=== PATIENT | male | born 1960 | race Caucasian/White ===

== ENCOUNTER 2025-08-31 15:40 | Inpatient (IN) | payer MEDICAID, SELFPAY ==
[2025-08-31] VITALS (28 sets, daily range): BP systolic 133–163; BP diastolic 78–100; PULSE 60–103; RESP 11–22; TEMP 36.4–37.7; O2SAT 92–100; BMI 27.9; BMI 27.8
--- NOTE | 2025-08-31 10:55 | SUR.PHASEI ---
1055 patient arrived to recovery, report received from Kacey PARKER
--- NOTE | 2025-08-31 11:12 | XR_ITS ---
Examination: CT abdomen, without intravenous contrast. CT pelvis, without intravenous contrast. CT abdomen, with intravenous contrast. CT pelvis, with intravenous contrast. 2-D sagittal coronal reconstructions. Date and time of exam: August 31, 2025, 1444 hours INDICATIONS: Difficulty urinating 2 years CTDI: vol (mGy) 16.5 DLP: (mGycm) 1019 Technique: Multiple 3.0 axial images of the abdomen and pelvis without intravenous contrast, 3.0 mm slice thickness. Multiple 3.0 postcontrast images abdomen and pelvis also obtained, post intravenous injection 60 cc [id number] 2-D sagittal and coronal reconstructions. Low dose protocols were performed. One or more of the following dose reduction techniques were used; automated exposure control, adjustment of the mA and/or KV according to patient size, use of iterative reconstruction technique. Findings: No focal liver or splenic lesions No gallstones No pancreatic mass. No renal or ureteral calculi. Fluid distended colon Normal appendix Marked inflammatory change around the sigmoid colon Urinary bladder intact Fat-containing inguinal hernia Advanced degenerative disc disease L4-L5, L5-S1 IMPRESSION: Marked inflammatory change around the entire sigmoid colon, differential would include nonspecific colitis, less likely acute diverticulitis, clinical correlation advised
[2025-08-31] MEDS: RINGERS LACTATED 1000 ML 1,000 ML 60 ML IV (11:16)
[2025-08-31 12:11] LABS: Basophils # (Auto) 0.0 Thou/mm3 (0.0-0.2); Basophils % (Auto) 0 % (0-2.5); Eosinophils # (Auto) 0.3 Thou/mm3 (0.0-0.5); Eosinophils % (Auto) 4 % (0-10); Hematocrit 36.4 % (41.0-53.0); Hemoglobin 11.4 g/dL (13.5-16.0); Immature Granulocytes Auto 0.02 Thou/mm3 (0.00-0.00); Lymphocytes # (Auto) 1.0 Thou/mm3 (1.0-4.8); Lymphocytes % (Auto) 11 % (10-50); Mean Corpuscular HGB Conc 31.3 g/dl (31.0-37.0); Mean Corpuscular Hemoglobin 24.6 pg (25.0-35.0); Mean Corpuscular Volume 78 fL (80-100); Monocytes # (Auto) 0.9 Thou/mm3 (0.0-0.8); Monocytes % (Auto) 10 % (0-12); Neutrophils # (Auto) 7.1 Thou/mm3 (1.8-7.7); Neutrophils % (Auto) 76 % (37-80); Nucleated Red Blood Cell # 0.00 Thou/mm3 (0.00-0.00); Nucleated Red Blood Cell % 0 /100 WBC (0); Platelet Count 345 Thou/mm3 (140-440); RDW Standard Deviation 40.8 fL (35.1-43.9); Red Blood Count 4.64 Miln/mm3 (4.50-5.90); White Blood Count 9.3 Thou/mm3 (3.8-10.6)
--- NOTE | 2025-08-31 12:30 | SUR.PHASEI ---
Dr. Calle at bedside, this report writer notified MD patient is bleeding from the rectal, currently oozing from rectum, MD stated this is to be expected, will monitor
[2025-08-31 12:34] LABS: Glucose Estimated Average 123 mg/dL (80-131); Hemoglobin A1C 5.9 % Hgb (4.8-6.0)
[2025-08-31 12:39] LABS: Alanine Aminotransferase 13 U/L (10-49); Albumin, Serum 3.9 gm/dL (3.4-4.8); Albumin/Globulin Ratio 1.9 (1.2-2.2); Alkaline Phosphatase 108 U/L (46-116); Anion Gap 8 (7-16); Aspartate Amino Transferase 17 U/L (0-34); BUN/Creatinine Ratio 13 Ratio (12-20); Bilirubin,Total 1.2 mg/dL (0.3-1.2); Blood Urea Nitrogen 10 mg/dL (9-23); Calcium 9.1 mg/dL (8.3-10.6); Calcium (Corrected) 9.2 mg/dL (8.5-10.1); Carbon Dioxide 29.0 mMol/L (20.0-31.0); Chloride 103 mMol/L (98-107); Creatinine (Component) 0.8 mg/dL (0.6-1.3); Estimated Creatinine Clearance 101.2 mL/min (>60); Globulin 2.1 gm/dL (2.3-3.5); Glucose 98 mg/dL (74-106); Osmolality,Calculated 278 (275-295); Potassium 4.1 mMol/L (3.4-5.1); Sodium 140 mMol/L (136-145); Total Protein 6.0 gm/dL (5.7-8.2); eGFR > 60 See Note
--- NOTE | 2025-08-31 12:39 | SUR.PHASEI ---
pt resting in gurney with eyes closed, pt responds to voice and answers questions appropriately, breathing unlabored, absorbent pad in place with small amount of dark red drainage-Dr Calle aware, VS stable, report from Nora Lane RN
--- NOTE | 2025-08-31 14:54 | SUR.PHASEI ---
1436 patient transported via gurney to CT 1454 patient returned to recovery from CT, tolerated well
--- NOTE | 2025-08-31 15:33 | SUR.PHASEI ---
1533 Patient transported via gurney to room 357 without incident, patient ambulated to restroom with stand-by assist, having loose stools, patient cleaned self with baby wipes and new underwear with pad placed on patient, Julissa PARKER arrived to patients room, noted scant about of blood to baby wipe that patient used to clean himself, patient then ambulated to bed, call light within reach and patient resting comfortably in bed when this underwriter mortgage loan left patient room, INDUSTRIAL G[employer] SERVICER HELPER arrived to room to obtain patients vital signs prior to this underwriter mortgage loan leaving patients room.
[2025-08-31] MEDS: RINGERS LACTATED 1000 ML 1,000 ML 125 ML IV ×2 (15:57→23:42)
--- NOTE | 2025-08-31 18:26 | PC.NURSE ---
Patient stated I have not talk to Doctor about planned procedure. Patient unclear of whats going on regarding current condition. Hold off on NGT insertion for now until patient speaks with doctor. --SERA
--- NOTE | 2025-08-31 19:47 | PD.SURHP ---
HPI Date of Admission 08/31/25 15:40 Chief Complaint Chief Complaint: Rectal cancer obstructing HPI This 64-year-old white male was brought to the hospital for screening colonoscopy and also evaluation of the rectal bleeding. He was found to have a completely obstructing rectal cancer was with a very small channel measuring about 5 mm the bowel prep did not work on him and he was evaluated endoscopically today and some biopsies were taken. He is being admitted to the hospital he is going to need to have diverting colostomy and he will require neoadjuvant chemoradiation therapy prior to other management can be instituted. He will definitely need permanent colostomy at this time. The biopsies were taken and we will confirm the diagnosis of the cancer. He will be evaluated for his general medical condition and he will be scheduled for colostomy that may be done laparoscopically loop colostomy. He will definitely require neoadjuvant chemotherapy and radiation therapy prior to considering any surgical resection. Oncology and radiation oncology consultations have been requested. Past Medical History Past Medical History NEUROLOGIC: Negative Neurological Disorders or Seizures CARDIAC: Positive Hypertension; Negative Cardiac Disorders, Congestive Heart Failure, Edema, Cellulitis or Varicose Veins RESPIRATORY: Positive Respiratory Disorders and Asthma; Negative Chronic Obstructive Pulmonary Disease (COPD), Pneumonia, Tuberculosis or Sleep Apnea GASTROINTESTINAL: Positive Gastrointestinal Disorders (Rectal bleeding); Negative Hepatitis GENITOURINARY: Positive Genitourinary Disorders, Kidney Stones and Inguinal Hernia (left repaired); Negative Renal Disease MUSCULOSKELETAL: Positive Musculoskeletal Disorders and Fractures ENDOCRINE: Negative Endocrine Disorders, Diabetes Mellitus Type 1 or Diabetes Mellitus Type 2 HEMATOLOGIC: Negative Blood Disorders or Sickle Cell Disease OTHER HISTORY: Negative Hospitalization, Shingles, Falls, Blood Transfusions, Blood Transfusion Reaction, Anesthesia Reactions, Chemotherapy, Radiation Therapy, MRSA, Chicken Pox, Measles, Mumps or Cancer Surgical History SURGICAL: Positive Tonsillectomy, Abdominal Surgery and Open Reduction Internal Fixation; Negative Pacemaker Social History SMOKING STATUS: Former smoker SUBSTANCE USE: other ( crank ) Travel History EBOLA RISK: No Meds Home Medications and Allergies Home Medications ?Medication ?Instructions ?Recorded ?Confirmed ?Type atorvastatin 40 mg tablet 40 mg PO HS 08/31/25 08/31/25 History lisinopril 40 mg tablet 40 mg PO QDAY 08/31/25 08/31/25 History Allergies Allergy/AdvReac Type Severity Reaction Status Date / Time No Known Allergies Allergy Verified 08/31/25 13:03 Exam Vital Signs Temp Pulse Resp BP Pulse Ox O2 Del Method O2 Flow Rate 99.5 F 88 16 142/82 H 95 Room Air 3 08/31/25 17:33 08/31/25 17:33 08/31/25 17:33 08/31/25 17:33 08/31/25 17:33 08/31/25 17:33 08/31/25 10:45 Constitutional Constitutional: no acute distress Routine HEENT Exam Head: Present normocephalic Eye: Present EOMI and PERRL ENT: Present mucous membranes moist Routine Neck Exam Neck: Present supple and trachea midline Routine Chest/Breast/Axilla Exam Chest wall: Absent tenderness or mass Routine Respiratory Exam Respiratory: Present chest non-tender, lungs clear, normal breath sounds and no resp distress; Absent respiratory distress Routine Cardiovascular Exam Cardiovascular: Present RRR Routine Abdominal Exam Abdominal: Present soft and normoactive bowel sounds Routine Rectal Exam Comments: Obstructing rectal cancer is present and due to previous examination he is having some rectal bleeding which is stopping now. Routine Extremities Exam Extremities: Present full ROM Routine Skin Exam Skin: Present intact, dry and warm Routine Neurological Exam Neurological: Present alert, oriented X3 and CN II-XII intact Routine Psychiatric Exam Psychiatric: Present normal affect and normal thought process Results Results: Imaging CT scan - abdomen: image reviewed Assessment & Plan Problem List (1) Carcinoma of rectum: Status: Acute (2) Complete obstruction of colon: Status: Acute (3) Hypertension: Qualifiers: Hypertension type: primary hypertension Qualified Code(s): I10 - Essential (primary) hypertension Status: Acute Plan Admitted to the hospital replacement IV fluid Nutritional assessment and scheduled for loop colostomy. Quality Measures Quality Measures none
--- NOTE | 2025-08-31 19:56 | ESCONSULT_ITS ---
<Statement entered by Hiren Beth MD - 09/01/25 07:29> I have discussed and was present for the essential components of the history, physical examination, diagnosis, and treatment plan with the resident. I agree with the patient's care as documented by the resident and amended herein by me. Hiren Beth MD FACP. HPI Data of Consult Requesting Physician: Carl Calle MD Admitting Provider: Carl Calle MD Attending Provider: Carl Calle MD Primary Care Provider: Salbador Bar MD Consult Narrative History of present illness: 64-year-old male with a history of hypertension and hyperlipidemia, now newly found rectal tumor following a colonoscopy by Dr. Calle on 08/30/2025. The patient reports ongoing symptoms of diarrhea and rectal bleeding. He notes difficulty with oral intake due to missing teeth but no significant weight loss identified. Denies shortness of breath, chest pain, nausea, or vomiting. He has no family history of cancer. The patient is an active smoker, smoking a few cigarettes daily with a [id number] history. He reports no significant alcohol use or drug history. Initial vitals on admission include temperature 97.5, BP 141/83, HR 74, RR 20, O2 sat 99% on room air. CBC showed hemoglobin 11.4. CMP showed creatinine 0.8, hemoglobin A1c 5.9, LFTs within normal range, electrolytes within normal range. CT abdomen showed marked inflammatory change around the entire sigmoid colon. Colonoscopy revealed a completely obstructing rectal tumor with a very small remaining lumen (~5mm). The hospitalist team has been consulted regarding the patient's general management while the patient gets colostomy placement on 09/[address] Calle. Thank you very much for involving us in the care of this patient. cc:: cc: Carl Calle MD Review of Systems Review of Systems Narrative Review of Systems: All systems reviewed negative unless stated otherwise above. Exam Vital Signs Temp Pulse Resp BP Pulse Ox O2 Del Method O2 Flow Rate 99.5 F 88 16 142/82 H 95 Room Air 3 08/31/25 17:33 08/31/25 17:33 08/31/25 17:33 08/31/25 17:33 08/31/25 17:33 08/31/25 17:33 08/31/25 10:45 Narrative Exam General: AOx3, no acute distress, able to speak full sentences, [place] speaking HEENT: NC/AT, mucous membranes moist, bilateral sclera anicteric Cardiovascular: regular rate and rhythm, S1/S2 present, no murmurs appreciated Pulmonary: clear to auscultation bilaterally, no rales/rhonchi/wheezes Abdominal: soft, non-tender, non-distended, no rebound/guarding, normal bowel sounds present Musculoskeletal: normal ROM, no peripheral edema Skin: warm and dry, intact, no rashes, Neuro: CN II-XII intact, no focal deficits Results Labs 08/31/25 11:58 08/31/25 11:58 Labs: Short CBC 08/31/25 Range/Units 11:58 WBC 9.3 (3.8-10.6) Thou/mm3 Hgb 11.4 L (13.5-16.0) g/dL Hct 36.4 L (41.0-53.0) % Plt Count 345 (140-440) Thou/mm3 BMP 08/31/25 11:58 Sodium 140 Potassium 4.1 Chloride 103 Carbon Dioxide 29.0 BUN 10 Creatinine 0.8 Glucose 98 Calcium 9.1 Liver Function 08/31/25 Range/Units 11:58 Total Bilirubin 1.2 (0.3-1.2) mg/dL AST 17 (0-34) U/L ALT 13 (10-49) U/L Alkaline Phosphatase 108 (46-116) U/L Albumin 3.9 (3.4-4.8) gm/dL Quality Measures Quality Measures none Medications Home Medications and Allergies Home Medications ?Medication ?Instructions ?Recorded ?Confirmed ?Type atorvastatin 40 mg tablet 40 mg PO HS 08/31/25 5 History lisinopril 40 mg tablet 40 mg PO QDAY 08/31/2508/31 History Allergies Allergy/AdvReac Type Severity Reaction Status Date / Time No Known Allergies Allergy Verified 08/31/25 13:03 Visit Medications Diphenhydramine HCl (Diphenhydramine Inj 50 Mg/Ml Vial) 25 mg IVP [id number] PRN PRN Reason: MODERATE SEDATION Hydromorphone HCl (Hydromorphone Inj 2 Mg/Ml Vial) 1 mg IVP Q4HR PRN PRN Reason: PAIN Stop: 09/05/25 10:58 Lactated Ringer's (Lactated Ringers) 1,000 mls @ 125 mls/hr IV .Q8H SHAHNAZ Stop: 09/30/25 10:59 Last Admin: 08/31/25 15:57 Dose: 125 mls/hr Discontinued Medications Bisacodyl (Bisacodyl 10 Mg Supp) 10 mg MD X1 PRN PRN Reason: Gas pain Stop: 08/31/25 11:04 Fentanyl Citrate (Fentanyl Cit Inj 50 Mcg/Ml Amp 2ml) 50 mcg IVP Q2M PRN PRN Reason: MODERATE SEDATION Lactated Ringer's (Lactated Ringers) 1,000 mls @ 60 mls/hr IV .[id number] SHAHNAZ Stop: 09/30/25 08:59 Midazolam HCl (Midazolam Inj 1 Mg/Ml Vial 2 Ml) 2 mg IVP Q2M PRN PRN Reason: Moderate Sedation Assessment & Plan Plan 64-year-old male with a history of hypertension and hyperlipidemia, now newly identified rectal tumor following a colonoscopy by Dr. Calle on 08/30/2025. The hospitalist team has been consulted regarding the patient's general management while the patient gets colostomy placement on 09/[address] Calle. #Rectal tumor, new The patient reports ongoing symptoms of diarrhea and rectal bleeding. CT abdomen showed marked inflammatory change around the entire sigmoid colon. Colonoscopy revealed a completely obstructing rectal tumor with a very small remaining lumen (~5mm). Plan: ? Biopsies were taken and we will confirm the diagnosis of the cancer ? Colostomy placement, Planned for 09/[address] Calle ? Dr. Butler and Dr. Mead consulted ? Neoadjuvant chemoradiation therapy prior to considering any surgical resection. #Hypertension Takes hydrochlorothiazide 25 mg daily and lisinopril 40 mg daily ?Resumed lisinopril 40 mg daily #Hyperlipidemia ? Resumed home atorvastatin 40 mg daily Health Maintenance: Diet: CLD GI prophylaxis: none DVT prophylaxis: SCDs Antibiotics: none CODE STATUS: FULL Disposition: MedSur Case discussed with my attending Dr. Beth, and senior resident, Dr. Agnes Mae MD PGY-1
[2025-08-31 20:50] LABS: Collection Type, Urine Clean Catch; Squamous Epithelial Cell,Urine 0 /hpf (0-5)
[2025-08-31] MEDS: ATORVASTATIN CALCIUM 20 MG TABLET 40 MG PO (20:55)
[2025-08-31 20:59] LABS: Amorphous Crystals,Urine Present (Absent); Bacteria,Urine 1+; Bilirubin,Urine Negative (Negative); Blood,Urine Negative (Negative); Clarity,Urine Clear (Clear/Hazy); Color,Urine Yellow (Lt Yel-Yel); Glucose, Urine Negative (Negative); Ketones,Urine Trace (Negative); Leukocyte Esterase,Urine Positive (Negative); Nitrite,Urine Positive (Negative); PH,Urine 6.0 (5.0-7.0); Protein,Urine Negative (Neg - Trace); RBC,Urine 1 /hpf (0-3); Specific Gravity,Urine 1.042 (1.001-1.035); Urobilinogen,Urine 3.0 mg/dL (0.0-1.0); WBC,Urine 14 /hpf (0-5)
[2025-08-31 21:07] LABS: Amphetamine/Methamp Scrn,U Positive (Negative); Barbiturate Screen,Urine Negative (Negative); Benzodiazepines Screen,Urine Positive (Negative); Benzoylecgonine Screen, Ur Negative (Negative); Fentanyl Screen,Urine Positive (Negative); Opiate Screen,Urine Negative (Negative); THC Screen,Urine Positive (Negative)
[2025-09-01] VITALS (7 sets, daily range): BP systolic 125–143; BP diastolic 74–98; PULSE 74–105; RESP 18; TEMP 36.7–37.7; O2SAT 93–94
--- NOTE | 2025-09-01 07:59 | PD.ONCRADCON ---
HPI Data of Consult Consult date: 09/01/25 Requesting Physician: Carl Calle MD Primary Care Provider: Salbador Bar MD Consult Narrative Reason for consult: Suspected colorectal cancer History of present illness: Patient is a 64-year-old gentleman with irregular bowel movements including diarrhea and passing bright red blood via rectum underwent colonoscopy performed by Dr. Calle 08/31/2025. Finding of obstructing mass which could not be completed due to unsatisfactory bowel prep and the narrowed lumen. Due to the obstruction patient is scheduled for loop diverting colostomy this a.m. CT scan abdomen pelvis 08/31/2025 revealed marked inflammatory changes around the entire sigmoid colon. Labs 08/31/2025 11.4 hemoglobin platelets 345 unremarkable CMP. Patient now referred for anticipated neoadjuvant chemoradiation following the palliative colostomy and the likely malignancy diagnosis. cc:: cc: Carl Calle MD Past Medical History Past Medical History Comments PMH COMMENT: Hypertension hyperlipidemia ORIF abdominal surgery history of kidney stones left inguinal herniorrhaphy Meds Home Medications and Allergies Home Medications ?Medication ?Instructions ?Recorded ?Confirmed ?Type atorvastatin 40 mg tablet 40 mg PO HS 08/31/25 08/31/25 History lisinopril 40 mg tablet 40 mg PO QDAY 08/31/25 08/31/25 History Allergies Allergy/AdvReac Type Severity Reaction Status Date / Time No Known Allergies Allergy Verified 08/31/25 13:03 Exam Vital Signs Temp Pulse Resp BP Pulse Ox O2 Del Method O2 Flow Rate 99.3 F 100 18 143/82 H 93 L Room Air 3 09/01/25 04:00 09/01/25 04:00 09/01/25 04:00 09/01/25 04:00 09/01/25 04:00 09/01/25 04:00 08/31/25 10:45 Narrative Exam Lying comfortably no acute distress Results Labs 08/31/25 11:58 08/31/25 11:58 Labs: Short CBC 08/31/25 Range/Units 11:58 WBC 9.3 (3.8-10.6) Thou/mm3 Hgb 11.4 L (13.5-16.0) g/dL Hct 36.4 L (41.0-53.0) % Plt Count 345 (140-440) Thou/mm3 BMP 08/31/25 11:58 Sodium 140 Potassium 4.1 Chloride 103 Carbon Dioxide 29.0 BUN 10 Creatinine 0.8 Glucose 98 Calcium 9.1 Liver Function 08/31/25 Range/Units 11:58 Total Bilirubin 1.2 (0.3-1.2) mg/dL AST 17 (0-34) U/L ALT 13 (10-49) U/L Alkaline Phosphatase 108 (46-116) U/L Albumin 3.9 (3.4-4.8) gm/dL Urine 08/31/25 Range/Units 20:33 Urine Color Yellow (Lt Yel-Yel) Urine Clarity Clear (Clear/Hazy) Urine pH 6.0 (5.0-7.0) Ur Specific [place] 1.042 H (1.001-1.035) Urine Protein Negative (Neg - Trace) Urine Glucose (UA) Negative (Negative) Assessment and Plan Additional Assessment & Plan Additional Plan: 1. History of lower GI bleeding, anemia noted on CBC obstructive symptoms colonoscopy revealing obstruction rectal area 2. Admitted with plans for loop colostomy. 3. Will follow patient postop, check pathology, perform staging and schedule any adjuvant therapy that will be needed. 4. Thank you very much for allowing me to evaluate this patient.
--- NOTE | 2025-09-01 08:59 | PC.SS ---
Follow up note: Possible surgery. Resident team is consulting to manage patient's blood pressure.
[2025-09-01 09:22] LABS: Basophils # (Auto) 0.0 Thou/mm3 (0.0-0.2); Basophils % (Auto) 0 % (0-2.5); Eosinophils # (Auto) 0.2 Thou/mm3 (0.0-0.5); Eosinophils % (Auto) 3 % (0-10); Hematocrit 31.6 % (41.0-53.0); Hemoglobin 10.3 g/dL (13.5-16.0); Immature Granulocytes Auto 0.04 Thou/mm3 (0.00-0.00); Lymphocytes # (Auto) 0.9 Thou/mm3 (1.0-4.8); Lymphocytes % (Auto) 10 % (10-50); Mean Corpuscular HGB Conc 32.6 g/dl (31.0-37.0); Mean Corpuscular Hemoglobin 25.0 pg (25.0-35.0); Mean Corpuscular Volume 77 fL (80-100); Monocytes # (Auto) 0.9 Thou/mm3 (0.0-0.8); Monocytes % (Auto) 11 % (0-12); Neutrophils # (Auto) 6.4 Thou/mm3 (1.8-7.7); Neutrophils % (Auto) 76 % (37-80); Nucleated Red Blood Cell # 0.00 Thou/mm3 (0.00-0.00); Nucleated Red Blood Cell % 0 /100 WBC (0); Platelet Count 308 Thou/mm3 (140-440); RDW Standard Deviation 40.2 fL (35.1-43.9); Red Blood Count 4.12 Miln/mm3 (4.50-5.90); White Blood Count 8.5 Thou/mm3 (3.8-10.6)
[2025-09-01] MEDS: RINGERS LACTATED 1000 ML 1,000 ML 125 ML IV ×2 (09:23→17:23)
[2025-09-01 09:58] LABS: Alanine Aminotransferase 10 U/L (10-49); Albumin, Serum 3.5 gm/dL (3.4-4.8); Albumin/Globulin Ratio 1.9 (1.2-2.2); Alkaline Phosphatase 95 U/L (46-116); Anion Gap 8 (7-16); Aspartate Amino Transferase 14 U/L (0-34); BUN/Creatinine Ratio 10 Ratio (12-20); Bilirubin,Total 1.7 mg/dL (0.3-1.2); Blood Urea Nitrogen 8 mg/dL (9-23); Calcium 8.2 mg/dL (8.3-10.6); Calcium (Corrected) 8.6 mg/dL (8.5-10.1); Carbon Dioxide 25.1 mMol/L (20.0-31.0); Chloride 103 mMol/L (98-107); Creatinine (Component) 0.8 mg/dL (0.6-1.3); Estimated Creatinine Clearance 101.2 mL/min (>60); Globulin 1.8 gm/dL (2.3-3.5); Glucose 142 mg/dL (74-106); Osmolality,Calculated 272 (275-295); Potassium 3.3 mMol/L (3.4-5.1); Sodium 136 mMol/L (136-145); Total Protein 5.3 gm/dL (5.7-8.2); eGFR > 60 See Note
--- NOTE | 2025-09-01 15:28 | ESPR_ITS ---
<Statement entered by Nam Rondon MD - 09/02/25 16:31> Patient was seen and examined at bedside. I agree on the assessment and plan on this note as documented by resident Krysta Peñaloza MD PGY1. 64-year-old male admitted post colonoscopy results by general surgery, internal medicine consulted for blood pressure management, will hold lisinopril prior to surgery, will continue to monitor blood pressure. Will consider hydralazine/labetalol as needed for blood pressure management. Case discussed with attending Dr. Gabe Garcia DO Nam Rondon MD PGY-2 Documentation for date of: 09/01/25 Subjective Subjective Interval history: 64 years old male with history of hypertension on Lisinopril 10mg daily presented for screening colonoscopy and evaluation of rectal bleeding, found to have complete obstructing rectal cancer with very small channel measuring 5 mm.? Biopsy taken.? Scheduled for laparoscopic loop colostomy for permanent colostomy placement on 09/[address] Calle.? Dr. Calle consulted IM for hypertension management. Exam Vital Signs Temp Pulse Resp BP Pulse Ox O2 Del Method O2 Flow Rate 98.4 F 80 18 140/75 H 94 L Room Air 3 09/01/25 12:15 09/01/25 12:15 09/01/25 12:15 09/01/25 12:15 09/01/25 12:15 09/01/25 12:15 08/31/25 10:45 Narrative Exam General: AOx3, no acute distress, able to speak full sentences, Vincent[place] speaking HEENT: NC/AT, mucous membranes moist, bilateral sclera anicteric Cardiovascular: regular rate and rhythm, S1/S2 present, no murmurs appreciated Pulmonary: clear to auscultation bilaterally, no rales/rhonchi/wheezes Abdominal: soft, non-tender, non-distended, no rebound/guarding, normal bowel sounds present Musculoskeletal: normal ROM, no peripheral edema Skin: warm and dry, intact, no rashes, Neuro: CN II-XII intact, no focal deficits Objective Labs 09/01/25 09:00 09/01/25 09:00 Labs: Laboratory Results - last 24 hr 08/31/25 08/31/25 09/01/25 20:28 20:33 09:00 WBC 8.5 RBC 4.12 L Hgb 10.3 L Hct 31.6 L MCV 77 L MCH 25.0 MCHC 32.6 RDW Std Deviation 40.2 Plt Count 308 D Neut % (Auto) 76 Lymph % (Auto) 10 [place] % (Auto) 11 Eos % (Auto) 3 Baso % (Auto) 0 Neut # (Auto) 6.4 Lymph # (Auto) 0.9 L [place] # (Auto) 0.9 H Eos # (Auto) 0.2 Baso # (Auto) 0.0 Immature Gran # (Auto) 0.04 H Absolute Nucleated RBC 0.00 Immature Gran % 1 H Nucleated RBC % 0 Sodium 136 Potassium 3.3 L D Chloride 103 Carbon Dioxide 25.1 Anion Gap 8 BUN 8 L Creatinine 0.8 Estim Creat Clear Calc 101.2 eGFR > 60 BUN/Creatinine Ratio 10 L Glucose 142 H Calculated Osmolality 272 L Calcium 8.2 L Corrected Calcium 8.6 Total Bilirubin 1.7 H D AST 14 ALT 10 Alkaline Phosphatase 95 Total Protein 5.3 L Albumin 3.5 Globulin 1.8 L Albumin/Globulin Ratio 1.9 Ur Collection Type Clean Catch Urine Color Yellow Urine Clarity Clear Urine pH 6.0 Ur Specific [place] 1.042 H Urine Protein Negative Urine Glucose (UA) Negative Urine Ketones Trace Urine Blood Negative Urine Nitrite Positive Urine Bilirubin Negative Urine Urobilinogen (Auto) 3.0 Ur Leukocyte Esterase Positive Urine RBC 1 Urine WBC 14 H Ur Squamous Epith Cells 0 Amorphous Crystals Present A Urine Bacteria 1+ A Urine Opiates Screen Negative Urine Fentanyl Screen Positive A Ur Barbiturates Screen Negative U Amphetamin/Meth Scrn Positive A U Benzodiazepines Scrn Positive A U Cocaine Metab Screen Negative U Marijuana (THC) Screen Positive A Quality Measures Quality Measures none Assessment & Plan Assessment Current Active Medications: Generic Name Dose Route Start Last Admin Trade Name Freq PRN Reason Stop Dose Admin Acetaminophen 650 mg 08/31/25 20:30 Acetaminophen 325 Mg Tablet PO 09/30/25 20:29 Q4HR PRN PAIN OR FEVER > 100.4 Atorvastatin Calcium 40 mg 08/31/25 21:00 08/31/25 20:55 Atorvastatin Calcium 20 Mg Tablet PO 09/30/25 20:59 40 mg HS SHAHNAZ Administration Diphenhydramine HCl 25 mg 08/31/25 09:04 Diphenhydramine Inj 50 Mg/Ml Vial IVP PRNMRX1 PRN MODERATE SEDATION Hydromorphone HCl 1 mg 08/31/25 20:34 Hydromorphone Inj 2 Mg/Ml Vial IVP 09/05/25 10:58 Q4HR PRN PAIN SCALE 4-10(Mod-Sev Lactated Ringer's 1,000 mls @ 125 mls/hr 08/31/25 11:00 09/01/25 09:23 Lactated Ringers IV 09/30/25 10:59 125 mls/hr .Q8H SHAHNAZ Administration Lisinopril 40 mg 09/01/25 09:00 09/01/25 09:26 Lisinopril 20 Mg Tablet PO 10/01/25 08:59 40 mg QDAY SHAHNAZ Administration Plan # Hypertension - Baseline SBP 135-140 on home lisinopril 10mg daily -? VS 143/82 highest 163/91 range SBP 130s-150s/70s-90s -? Patient is currently on lisinopril milligram daily, Tylenol 650 every 4 hrs as needed and hydromorphone 1 mg every 4 hrs as needed for pain management per primary team -? No need to adjust hypertensive medication at this time - Hold lisinopril prior to surgery tomorrow and resume after surgery - Will continue to follow #Suspected colorectal cancer - Found on last screening colonoscopy - Manage per primary team DVT prophylaxis: SCD GI prophylaxis: None Diet: CLD, NPO midnight for surgery tomorrow Lines: PIV Code status: Full code Assessment and plan discussed with my attending physician Dr. Garcia and Dr. Rondon (PGY-2). Dr. Peñaloza (PGY-1) ? founder president and ceo Attending Provider Attestation/Addendum I have discussed and was present for the essential components of the history, physical examination, diagnosis, and treatment plan with the resident. I agree with the patient's care as documented by the resident and amended herein by me. Alfredo Garcia DO. Although this document has been carefully reviewed, there may still be some phonetic and other typographical errors. These errors are purely grammatical due to imperfections in the software program and should not be construed in any way to compromise the substance of the patient's medical care during this visit.
--- NOTE | 2025-09-01 17:50 | PD.SURPROG ---
Documentation for date of: 09/01/25 Subjective Subjective Brief History: This 64-year-old white male was brought to the hospital for screening colonoscopy and also evaluation of the rectal bleeding. He was found to have a completely obstructing rectal cancer was with a very small channel measuring about 5 mm the bowel prep did not work on him and he was evaluated endoscopically today and some biopsies were taken. He is being admitted to the hospital he is going to need to have diverting colostomy and he will require neoadjuvant chemoradiation therapy prior to other management can be instituted. He will definitely need permanent colostomy at this time. The biopsies were taken and we will confirm the diagnosis of the cancer. He will be evaluated for his general medical condition and he will be scheduled for colostomy that may be done laparoscopically loop colostomy. He will definitely require neoadjuvant chemotherapy and radiation therapy prior to considering any surgical resection. Oncology and radiation oncology consultations have been requested. September 01, 2025 Progress note. 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 Patient is scheduled for examination of the rectal tumor under anaesthesia and possible debulking to open rectal passage for stool and laparoscopic loop colostomy possible open. I have discussed the colostomy and after care with the patient in different ways that the patient may understand and informed consent is obtained. He lives alone and he may need help to learn to manage the colostomy after discharge I will request social media project manager for assistance. His potenssium is 3.3 and I will replace that tonight. There are no new complaints. Patient is evaluated by hospitalist service for general medical mangement. Exam Vital Signs Temp Pulse Resp BP Pulse Ox O2 Del Method O2 Flow Rate 98.4 F 80 18 140/75 H 94 L Room Air 3 09/01/25 12:15 09/01/25 12:15 09/01/25 12:15 09/01/25 12:15 09/01/25 12:15 09/01/25 12:15 08/31/25 10:45 Narrative Exam Patients condition remains stable and unchanged. Assessment & Plan Diagnosis (1) Carcinoma of rectum: Status: Acute (2) Complete obstruction of colon: Status: Acute (3) Hypertension: Status: Acute Plan Examination under anesthesia and transanal resection of rectal tumor. Laparoscopic colostomy possible open. Informed consent was obtained. (3) Hypertension Qualifiers: Hypertension type: primary hypertension Qualified Code(s): I10 - Essential (primary) hypertension
[2025-09-01] MEDS: POTASSIUM CHL 10 mEq IVPB 10 MEQ/100 ML BAG 50 MEQ IV ×2 (17:56→19:32)
[2025-09-01] MEDS: ATORVASTATIN CALCIUM 20 MG TABLET 40 MG PO (20:01)
[2025-09-02] VITALS (13 sets, daily range): BP systolic 102–141; BP diastolic 66–90; PULSE 65–91; RESP 15–18; TEMP 36.2–37.7; O2SAT 93–97
--- NOTE | 2025-09-02 00:05 | PC.NURSE ---
Pt is NPO starting now, informed pt, verbalized understanding.
[2025-09-02] MEDS: RINGERS LACTATED 1000 ML 1,000 ML 125 ML IV ×3 (01:12→20:27)
--- NOTE | 2025-09-02 09:21 | ESPR_ITS ---
<Statement entered by Nam Rondon MD - 09/02/25 17:10> Patient was seen and examined at bedside. I agree on the assessment and plan on this note as documented by resident Krysta Peñaloza MD PGY1. That your presentation is 64-year-old male, admitted by general surgeon, scheduled for possible surgery, internal medicine team consulted for blood pressure management. Lisinopril is being held, blood pressure is well- controlled with SBP's 120-130, consider hydralazine or labetalol as needed for management of blood pressure. Will continue to monitor blood pressure and manage as needed. Case discussed with attending Dr. Nam Rondon MD PGY-2 Documentation for date of: 09/02/25 Subjective Subjective Interval history: Patient seen and examined by bedside. Patient was sleeping. Reported feeling well. No complaints. Patient does not know what time surgery is today. Potassium was 3.3 yesterday, no new labs today. Giving potassium chloride 20 mg IV while waiting for surgery. Dr. Calle confirms adenocarcinoma rectum invading perianal skin on histology. Defer to primary team for further management. Exam Vital Signs Temp Pulse Resp BP Pulse Ox O2 Del Method O2 Flow Rate 97.3 F 90 17 124/70 95 Room Air 3 09/02/25 08:00 09/02/25 08:00 09/02/25 08:00 09/02/25 08:00 09/02/25 08:00 09/02/25 08:00 08/31/25 10:45 Narrative Exam General: AOx3, no acute distress, able to speak full sentences, Malay speaking HEENT: NC/AT, mucous membranes moist, bilateral sclera anicteric Cardiovascular: regular rate and rhythm, S1/S2 present, no murmurs appreciated Pulmonary: clear to auscultation bilaterally, no rales/rhonchi/wheezes Abdominal: soft, non-tender, non-distended, no rebound/guarding, normal bowel sounds present Musculoskeletal: normal ROM, no peripheral edema Skin: warm and dry, intact, no rashes, Neuro: CN II-XII intact, no focal deficits Objective Labs 09/01/25 09:00 09/02/25 14:46 Labs: Laboratory Results - last 24 hr 09/01/25 09:00 WBC 8.5 RBC 4.12 L Hgb 10.3 L Hct 31.6 L MCV 77 L MCH 25.0 MCHC 32.6 RDW Std Deviation 40.2 Plt Count 308 D Neut % (Auto) 76 Lymph % (Auto) 10 Gage % (Auto) 11 Eos % (Auto) 3 Baso % (Auto) 0 Neut # (Auto) 6.4 Lymph # (Auto) 0.9 L Gage # (Auto) 0.9 H Eos # (Auto) 0.2 Baso # (Auto) 0.0 Immature Gran # (Auto) 0.04 H Absolute Nucleated RBC 0.00 Immature Gran % 1 H Nucleated RBC % 0 Sodium 136 Potassium 3.3 L D Chloride 103 Carbon Dioxide 25.1 Anion Gap 8 BUN 8 L Creatinine 0.8 Estim Creat Clear Calc 101.2 eGFR > 60 BUN/Creatinine Ratio 10 L Glucose 142 H Calculated Osmolality 272 L Calcium 8.2 L Corrected Calcium 8.6 Total Bilirubin 1.7 H D AST 14 ALT 10 Alkaline Phosphatase 95 Total Protein 5.3 L Albumin 3.5 Globulin 1.8 L Albumin/Globulin Ratio 1.9 Quality Measures Quality Measures VTE prophylaxis Assessment & Plan Assessment Current Active Medications: Generic Name Dose Route Start Last Admin Trade Name Freq PRN Reason Stop Dose Admin Acetaminophen 650 mg 08/31/25 20:30 Acetaminophen 325 Mg Tablet PO 09/30/25 20:29 Q4HR PRN PAIN OR FEVER > 100.4 Atorvastatin Calcium 40 mg 08/31/25 21:00 09/01/25 20:01 Atorvastatin Calcium 20 Mg Tablet PO 09/30/25 20:59 40 mg HS SHAHNAZ Administration Diphenhydramine HCl 25 mg 08/31/25 09:04 Diphenhydramine Inj 50 Mg/Ml Vial IVP PRNMRX1 PRN MODERATE SEDATION Hydromorphone HCl 1 mg 08/31/25 20:34 Hydromorphone Inj 2 Mg/Ml Vial IVP 09/05/25 10:58 Q4HR PRN PAIN SCALE 4-10(Mod-Sev Lactated Ringer's 1,000 mls @ 125 mls/hr 08/31/25 11:00 09/02/25 01:12 Lactated Ringers IV 09/30/25 10:59 125 mls/hr .Q8H SHAHNAZ Administration Potassium Chloride 10 meq in 100 mls @ 100 mls/hr 09/02/25 08:04 Kcl Ivpb IV 09/02/25 10:03 Q1H SHAHNAZ Lisinopril 40 mg 09/01/25 09:00 09/01/25 09:26 Lisinopril 20 Mg Tablet PO 10/01/25 08:59 40 mg On Hold: 09/01/25 23:55 QDAY [facility] Administration Plan # Hypertension - Baseline SBP 135-140 on home lisinopril 10mg daily and hydrochlorothiazide 25mg daily - VS 138/81 highest 163/91 range SBP 130s-150s/70s-90s - Patient is currently on lisinopril milligram daily, Tylenol 650 every 4 hrs as needed and hydromorphone 1 mg every 4 hrs as needed for pain management per primary team -?No need to adjust hypertensive medication at this time - Hold lisinopril prior to surgery tomorrow and resume after surgery - Will continue to follow #Hypokalemia - Potassium of 3.3 yesterday, no new labs today. No chest pain, shortness of breath, palpitation - Give potassium chloride 20 mg IV prior to surgery today #Colorectal cancer - Found on last screening colonoscopy - Dr. Calle reported confirmation of histologic diagnosis of adenocarcinoma rectum invading perianal skin. Patient is scheduled for examination of the rectal tumor under anaesthesia and possible debulking to open rectal passage for stool and laparoscopic loop colostomy possible open - Manage per primary team DVT prophylaxis: SCD GI prophylaxis: None Diet: NPO, surgery today Lines: PIV Code status: Full code Assessment and plan discussed with my attending physician Dr. Garcia and Dr. Rondon (PGY-2). Dr. Peñaloza (PGY-1) ? ceo and president Attending Provider Attestation/Addendum I have discussed and was present for the essential components of the history, physical examination, diagnosis, and treatment plan with the resident. I agree with the patient's care as documented by the resident and amended herein by me. Alfredo Garcia DO. Although this document has been carefully reviewed, there may still be some phonetic and other typographical errors. These errors are purely grammatical due to imperfections in the software program and should not be construed in any way to compromise the substance of the patient's medical care during this visit. Patient seen and evaluated this AM. No acute events overnight, BP well- controlled with SBP 120s to 130s. Patient scheduled for surgery today, will continue to follow, we appreciate the opportunity to participate in the care and management of this patient.
[2025-09-02] MEDS: POTASSIUM CHL 10 mEq IVPB 10 MEQ/100 ML BAG 100 MEQ IV ×2 (10:08→11:11)
--- NOTE | 2025-09-02 13:11 | PC.SS ---
Late note 09-01-25: SS met with patient regarding his d/c plan. Pt is alert/oriented. Pt was admitted for Colonoscopy. Pt confirmed demographic and contact information is correct on facesheet. Pt resides alone. Pt ambulates independently without assistance or DME. Pt is ok with all ADLs. Patient?s pharmacy of choice is [facility] on [address] Pt named his friend, Ceferino Damian phone# [phone] medical decision maker if he is unable. Patient?s choice is to return home upon d/c. Pt does not have an advance directive, SS offered, and pt declined. Pt states not diabetic and is not on dialysis. Pt states he followed up with PCP 1 month ago. Friend will provide transportation home. D/C plan: Return home Next of Kin: Ceferino Alcantaraon, friend, phone# [phone] PCP: [facility] on [facility] Address: Correct on facesheet
--- NOTE | 2025-09-02 14:54 | PC.NURSE ---
PATIENT ABLE TO TRANSFERS ON HIS OWN TO [facility], TRANSFER TO OR. PT ALERT AND ORIENTED X4.
[2025-09-02 15:21] LABS: Anion Gap 13 (7-16); BUN/Creatinine Ratio 7 Ratio (12-20); Blood Urea Nitrogen 6 mg/dL (9-23); Calcium 9.0 mg/dL (8.3-10.6); Carbon Dioxide 22.3 mMol/L (20.0-31.0); Chloride 102 mMol/L (98-107); Creatinine (Component) 0.9 mg/dL (0.6-1.3); Estimated Creatinine Clearance 90.0 mL/min (>60); Glucose 102 mg/dL (74-106); Osmolality,Calculated 271 (275-295); Potassium 3.8 mMol/L (3.4-5.1); Sodium 137 mMol/L (136-145); eGFR > 60 See Note
--- NOTE | 2025-09-02 17:58 | PD.SUROPNT ---
Date of Procedure 09/02/25 Pre Op Diagnosis Obstructing Rectal carcinoma Post Op Diagnosis Same Procedure Examination under anesthesia and partial resection of rectal tumor Laparoscopic assisted Transverse loop colostomy on 09/02/2025 Findings There is an obstructing rectal adenocarcinoma. I resected portion of that so that it is not obstructing. Procedure Description This patient was examined in the preop area and procedure was disussed with the patient and informed consent was obtained. The colostomy site was determined to be on the right upper mid abdomen . This was marked on the skin. The patient was taken to operating room and general anesthesia was administerd. Abdomen and perianal regions were prepped and drapped in usual manner. The anorectal examination is carried out first. The obstructing tumor was noted. I resected central portion of obstructing tumor. At the end the rectum diameter was 2 inches to decompress the distal colon. There was some bleeding from the manipulation. It was essentially oozing bleeding from the tumor. The rectum was packed with gauze to apply pressure. After this we changed gown and gloves and proceeded to do laparoscopy. The abdomen was already prepped and drapped. I made an infra umbilical incision for open laparoscopy and ballon canula ws inserted. Pneumoperitoneum was achieved. 30 degree scope was used. I then placed a 100 trocar in left upper quadrant antwo 5 mm trocars one in right lower quadrant and one in left paramedial location. The patient was positioned in revere trendelenburg position. I released the transveres colon to the right of middle colic artery from attachments to omentum. The hepatocolic ligaments were also divided with harmonic patti. At this point the transverse colon was mobilized enough to bring it up to the selected laparoscopic site. I then released the pneumoperitoneum and made a small 4 inch upper midline laparotomy and examined the mobilized transverse colon. I placed a carina drain around the selected site of colon. After this I removed a 2 inch skin nome t the selected colostomy site. I incised the anterior rectus sheath transverselt and rectus muscle and made a small verticle incision in the posterior rectus sheath. I then pulled the transverse colon loop with carina drain. After this I placed a bridge under the loop and sutured it to the slin I placed vaseline gauge and wet saline gaue, I decide to mature the colostomy later. The laps and instrument count were correct. The mid line incision was closed in layers. Linea alba with 0 pds continuous suture, subcutaneous layer with 3 0' chromic and skin by 4 0' nylon. The infraumbilical incision was closed with 0' vicryl for lineaalba and 3 0' chromic for subcutaneous tissue and skin by 4 0' nylon. Other trocar site incisions were closed with 4 0' nylon interrupted stitches. Sterile dressings were applied. Anesthesia GETA Drains None Implants None. Pathology / specimen Other (Portion of rectal tumor.) Estimated Blood Loss 10 Condition Stable Disposition PACU Surgeon Carl Calle MD Surgical Staff Operation Date: 09/02/25 14:30 Case Staff Anesthesiologist: Chon Montez RNdelivery route driver: Kishan Rosa RN chain tender Lolita Conn invasive cardiovascular technologist. Additional Comment This patient will be brought back to surgery to mature the colostomy.
--- NOTE | 2025-09-02 18:10 | SUR.PHASEI ---
Pt. arrived to recovery via gurney, eyes closed, responds verbal commands, VSS, no c/o pain or nausea at this time, lung sounds clear, equal expansion emiliana., pt. receiving 4 liters 02 via NC, dressing to medial abd. 4x4, abd. pad and mediport tape intact, 3 lap sites, 4x4 and mediport tape intact, colostomy creation to right side of abd., zerofoam gauze around stoma, no active bleeding or redness noted, 4x4 rolled up and packed in rectum, no active bleeding noted. Report received from Dr. Montez and Aaron PARKER.
--- NOTE | 2025-09-02 19:20 | SUR.PHASEI ---
Pt. transferred to room 357 via AVELINA malcolm, no c/o pain or nausea at this time, dressing to abd. CDI, small amount of dry blood noted to rectum, IV saline Betsy driscoll RN assumed care of pt.
[2025-09-02] MEDS: ATORVASTATIN CALCIUM 20 MG TABLET 40 MG PO (20:13)
[2025-09-02] MEDS: ACETAMINOPHEN IVPB 1,000 MG/100 ML VIAL 250 MG IV (20:14)
[2025-09-03] VITALS (10 sets, daily range): BP systolic 112–131; BP diastolic 69–80; PULSE 59–72; RESP 18–20; TEMP 36.3–36.7; O2SAT 93–99
[2025-09-03] MEDS: ACETAMINOPHEN IVPB 1,000 MG/100 ML VIAL 250 MG IV ×2 (01:13→08:12)
[2025-09-03] MEDS: RINGERS LACTATED 1000 ML 1,000 ML 125 ML IV ×3 (04:50→20:45)
[2025-09-03 08:03] LABS: Basophils # (Auto) 0.0 Thou/mm3 (0.0-0.2); Basophils % (Auto) 0 % (0-2.5); Eosinophils # (Auto) 0.0 Thou/mm3 (0.0-0.5); Eosinophils % (Auto) 0 % (0-10); Hematocrit 34.1 % (41.0-53.0); Hemoglobin 10.9 g/dL (13.5-16.0); Immature Granulocytes Auto 0.04 Thou/mm3 (0.00-0.00); Lymphocytes # (Auto) 0.5 Thou/mm3 (1.0-4.8); Lymphocytes % (Auto) 5 % (10-50); Mean Corpuscular HGB Conc 32.0 g/dl (31.0-37.0); Mean Corpuscular Hemoglobin 24.5 pg (25.0-35.0); Mean Corpuscular Volume 77 fL (80-100); Monocytes # (Auto) 0.7 Thou/mm3 (0.0-0.8); Monocytes % (Auto) 7 % (0-12); Neutrophils # (Auto) 9.8 Thou/mm3 (1.8-7.7); Neutrophils % (Auto) 88 % (37-80); Nucleated Red Blood Cell # 0.00 Thou/mm3 (0.00-0.00); Nucleated Red Blood Cell % 0 /100 WBC (0); Platelet Count 322 Thou/mm3 (140-440); RDW Standard Deviation 38.8 fL (35.1-43.9); Red Blood Count 4.44 Miln/mm3 (4.50-5.90); White Blood Count 11.1 Thou/mm3 (3.8-10.6)
[2025-09-03 08:38] LABS: Alanine Aminotransferase 10 U/L (10-49); Albumin, Serum 3.5 gm/dL (3.4-4.8); Albumin/Globulin Ratio 1.8 (1.2-2.2); Alkaline Phosphatase 96 U/L (46-116); Anion Gap 8 (7-16); Aspartate Amino Transferase 16 U/L (0-34); BUN/Creatinine Ratio 19 Ratio (12-20); Bilirubin,Total 1.5 mg/dL (0.3-1.2); Blood Urea Nitrogen 15 mg/dL (9-23); Calcium 8.5 mg/dL (8.3-10.6); Calcium (Corrected) 8.9 mg/dL (8.5-10.1); Carbon Dioxide 24.3 mMol/L (20.0-31.0); Chloride 105 mMol/L (98-107); Creatinine (Component) 0.8 mg/dL (0.6-1.3); Estimated Creatinine Clearance 101.2 mL/min (>60); Globulin 1.9 gm/dL (2.3-3.5); Glucose 127 mg/dL (74-106); Osmolality,Calculated 276 (275-295); Potassium 4.5 mMol/L (3.4-5.1); Sodium 137 mMol/L (136-145); Total Protein 5.4 gm/dL (5.7-8.2); eGFR > 60 See Note
--- NOTE | 2025-09-03 08:52 | PC.SS ---
Follow up note: Team B is consulting and controlling blood pressure. Pt will return home upon dc.
--- NOTE | 2025-09-03 09:23 | ESPR_ITS ---
<Statement entered by Rudy Constantino MD - 09/03/25 15:16> Patient seen and examined at bedside. I discussed and supervised with the sports broadcasting internship physician who took care of this patient. I personally saw and examined the patient. I agree with most of the assessment and plan. Plan of care discussed with attending Dr. Garcia. Rudy Constantino MD PGY-2 Documentation for date of: 09/03/25 Subjective Subjective Interval history: Status post resection of obstructing rectal adenocarcinoma and transverse loop colostomy 09/[address] Calle. Patient looked comfortable, felt tired, currently on 2L NC. Blood pressure has been stable with lisinopril on hold since prior to surgery. Physical exam showed a vertical dressing in mid abdomen. Management per primary team. Exam Vital Signs Temp Pulse Resp BP Pulse Ox O2 Del Method O2 Flow Rate 98.0 F 62 20 116/71 93 L Room Air 2 09/03/25 08:00 09/03/25 08:19 09/03/25 08:00 09/03/25 08:19 09/03/25 08:00 09/03/25 08:00 09/03/25 03:28 Narrative Exam General: AOx3, no acute distress, able to speak full sentences, [place] speaking HEENT: NC/AT, mucous membranes moist, bilateral sclera anicteric Cardiovascular: regular rate and rhythm, S1/S2 present, no murmurs appreciated Pulmonary: clear to auscultation bilaterally, no rales/rhonchi/wheezes Abdominal: soft, non-tender, vertical dressing in mid abdomen, no rebound/guarding, normal bowel sounds present Musculoskeletal: normal ROM, no peripheral edema Skin: warm and dry, intact, no rashes, Neuro: CN II-XII intact, no focal deficits Objective Labs 09/03/25 07:42 09/03/25 07:42 Labs: Laboratory Results - last 24 hr 09/02/25 09/03/25 14:46 07:42 WBC 11.1 H RBC 4.44 L Hgb 10.9 L Hct 34.1 L MCV 77 L MCH 24.5 L MCHC 32.0 RDW Std Deviation 38.8 Plt Count 322 Neut % (Auto) 88 H Lymph % (Auto) 5 L [place] % (Auto) 7 Eos % (Auto) 0 Baso % (Auto) 0 Neut # (Auto) 9.8 H Lymph # (Auto) 0.5 L K[place]haw # (Auto) 0.7 Eos # (Auto) 0.0 Baso # (Auto) 0.0 Immature Gran # (Auto) 0.04 H Absolute Nucleated RBC 0.00 Immature Gran % 0 Nucleated RBC % 0 Sodium 137 137 Potassium 3.8 D 4.5 D Chloride 102 105 Carbon Dioxide 22.3 24.3 Anion Gap 13 8 BUN 6 L 15 Creatinine 0.9 0.8 Estim Creat Clear Calc 90.0 101.2 eGFR > 60 > 60 BUN/Creatinine Ratio 7 L 19 Glucose 102 127 H Calculated Osmolality 271 L 276 Calcium 9.0 8.5 Corrected Calcium 8.9 Total Bilirubin 1.5 H AST 16 ALT 10 Alkaline Phosphatase 96 Total Protein 5.4 L Albumin 3.5 Globulin 1.9 L Albumin/Globulin Ratio 1.8 Quality Measures Quality Measures VTE prophylaxis Assessment & Plan Assessment Current Active Medications: Generic Name Dose Route Start Last Admin Trade Name Freq PRN Reason Stop Dose Admin Acetaminophen 650 mg 08/31/25 20:30 Acetaminophen 325 Mg Tablet PO 09/30/25 20:29 On Hold: 09/02/25 19:32 Q4HR PRN Resume: 09/03/25 19:33 PAIN OR FEVER > 100.4 Comment: ON 1000MG IVPB Q6H SHAHNAZ Atorvastatin Calcium 40 mg 08/31/25 21:00 09/02/25 20:13 Atorvastatin Calcium 20 Mg Tablet PO 09/30/25 20:59 40 mg HS SHAHNAZ Administration Diphenhydramine HCl 25 mg 08/31/25 09:04 Diphenhydramine Inj 50 Mg/Ml Vial IVP PRNMRX1 PRN MODERATE SEDATION Hydrochlorothiazide 25 mg 09/03/25 09:00 09/03/25 08:11 Hydrochlorothiazide 12.5 Mg Capsule PO 10/03/25 08:59 25 mg QAM SHAHNAZ Administration Hydromorphone HCl 1 mg 08/31/25 20:34 Hydromorphone Inj 2 Mg/Ml Vial IVP 09/05/25 10:58 Q4HR PRN PAIN SCALE 4-10(Mod-Sev Lactated Ringer's 1,000 mls @ 125 mls/hr 08/31/25 11:00 09/03/25 04:50 Lactated Ringers IV 09/30/25 10:59 125 mls/hr .Q8H SHAHNAZ Administration Acetaminophen 1,000 mg in 100 mls @ 250 mls/hr 09/02/25 19:31 09/03/25 08:12 Ofirmev Inj IV 09/03/25 13:54 250 mls/hr Q6H SHAHNAZ Administration Lisinopril 40 mg 09/01/25 09:00 09/03/25 08:19 Lisinopril 20 Mg Tablet PO 10/01/25 08:59 40 mg QDAY SHAHNAZ Administration Plan # Hypertension - Baseline SBP 135-140 on home lisinopril 10mg daily and hydrochlorothiazide 25mg daily - VS 116/71 normotensive - Not an indication to resume lisinopril at this time - Pain regimen which can contribute to hypertension managed per primary team - Will continue to follow #Hypokalemia - Status post resection of obstructing rectal adenocarcinoma and transverse loop colostomy 09/[address] Calle - Managed per primary team #Colorectal cancer - Found on last screening colonoscopy - Dr. Calle reported confirmation of histologic diagnosis of adenocarcinoma rectum invading perianal skin. Patient is scheduled for examination of the rectal tumor under anaesthesia and possible debulking to open rectal passage for stool and laparoscopic loop colostomy possible open - Status post resection of obstructing rectal adenocarcinoma and transverse loop colostomy 09/[address] Calle - Manage per primary team DVT prophylaxis: SCD GI prophylaxis: None Diet: NPO, surgery today Lines: PIV Code status: Full code Assessment and plan discussed with my attending physician Dr. Garcia and Dr. Constantino (PGY-2). Dr. Peñaloza (PGY-1) ? residential sales manager Attending Provider Attestation/Addendum I have discussed and was present for the essential components of the history, physical examination, diagnosis, and treatment plan with the resident. I agree with the patient's care as documented by the resident and amended herein by me. Alfredo Garcia DO. Although this document has been carefully reviewed, there may still be some phonetic and other typographical errors. These errors are purely grammatical due to imperfections in the software program and should not be construed in any way to compromise the substance of the patient's medical care during this visit. Patient seen and evaluated this AM. Patient now postop day 1 from laparoscopic assisted transverse loop colostomy secondary to an obstructing rectal adenocarcinoma which was resected. Medicine team was consulted for blood pressure control which she has been normotensive today hence we will continue holding blood pressure medication at this time, may restart tomorrow pending clinical course. Will continue to follow this patient.
[2025-09-03] MEDS: HYDROmorphone INJ 2 MG/ML VIAL 1 MG IVP ×3 (12:39→20:45)
--- NOTE | 2025-09-03 20:29 | ESPR_ITS ---
Documentation for date of: 09/02/25 Subjective Subjective Brief History: This 64-year-old white male was brought to the hospital for screening colonoscopy and also evaluation of the rectal bleeding. He was found to have a completely obstructing rectal cancer was with a very small channel measuring about 5 mm the bowel prep did not work on him and he was evaluated endoscopically today and some biopsies were taken. He is being admitted to the hospital he is going to need to have diverting colostomy and he will require neoadjuvant chemoradiation therapy prior to other management can be instituted. He will definitely need permanent colostomy at this time. The biopsies were taken and we will confirm the diagnosis of the cancer. He will be evaluated for his general medical condition and he will be scheduled for colostomy that may be done laparoscopically loop colostomy. He will definitely require neoadjuvant chemotherapy and radiation therapy prior to considering any surgical resection. Oncology and radiation oncology consultations have been requested. September 01, 2025 Progress note. 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 Patient is scheduled for examination of the rectal tumor under anaesthesia and possible debulking to open rectal passage for stool and laparoscopic loop colostomy possible open. I have discussed the colostomy and after care with the patient in different ways that t he patient may understand and informed consent is obtained. He lives alone and he may need help to learn to manage the colostomy after discharge I will request older adult social work specialist for assistance. His potenssium is 3.3 and I will replace that tonight. There are no new complaints. Patient is evaluated by hospitalist service for general medical mangement. September 02 2025. Progress note. This patient is scheduled for examination under anesthesia and transanal resection of rectal tumor and laparoscopic colostomy. Informed consent was obtained. Exam Vital Signs Temp Pulse Resp BP Pulse Ox O2 Del Method O2 Flow Rate 97.5 F 72 19 116/69 99 Nasal Cannula 2 09/03/25 16:00 09/03/25 16:00 09/03/25 16:00 09/03/25 16:00 09/03/25 16:09/03/25 16:09/03/25 16:00 Narrative Exam Cardiopulmonary exam is normal, abdomen is soft and mildly distended. Rectal tumor is adenocarcinoma invading anal canal and is obstructing. Assessment & Plan Diagnosis (1) Carcinoma of rectum: Status: Acute (2) Complete obstruction of colon: Status: Acute (3) Hypertension: Status: Acute Plan Examination under anesthesia and partial resection of rectal tumor Laparoscopic assisted Transverse loop colostomy on 09/02/2025 PROCEDURES: Procedure Date 09/02/25 (3) Hypertension Qualifiers: Hypertension type: primary hypertension Qualified Code(s): I10 - Essential (primary) hypertension
--- NOTE | 2025-09-03 20:34 | ESPR_ITS ---
Documentation for date of: 09/03/25 Subjective Subjective Brief History: This 64-year-old white male was brought to the hospital for screening colonoscopy and also evaluation of the rectal bleeding. He was found to have a completely obstructing rectal cancer was with a very small channel measuring about 5 mm the bowel prep did not work on him and he was evaluated endoscopically today and some biopsies were taken. He is being admitted to the hospital he is going to need to have diverting colostomy and he will require neoadjuvant chemoradiation therapy prior to other management can be instituted. He will definitely need permanent colostomy at this time. The biopsies were taken and we will confirm the diagnosis of the cancer. He will be evaluated for his general medical condition and he will be scheduled for colostomy that may be done laparoscopically loop colostomy. He will definitely require neoadjuvant chemotherapy and radiation therapy prior to considering any surgical resection. Oncology and radiation oncology consultations have been requested. September 01, 2025 Progress note. 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 Patient is scheduled for examination of the rectal tumor under anaesthesia and possible debulking to open rectal passage for stool and laparoscopic loop colostomy possible open. I have discussed the colostomy and after care with the patient in different ways that t he patient may understand and informed consent is obtained. He lives alone and he may need help to learn to manage the colostomy after discharge I will request social and political studies professor for assistance. His potenssium is 3.3 and I will replace that tonight. There are no new complaints. Patient is evaluated by hospitalist service for general medical mangement. September 02 2025. Progress note. This patient is scheduled for examination under anesthesia and transanal resection of rectal tumor and laparoscopic colostomy. Informed consent was obtained. September 03 2025 Progress note. The packing from the anal canal was removed there is minimal bleeding. The dressing on the loop colostomy is intact. Colostomy will be matured tomorrow. Informed consent was obtained. Exam Vital Signs Temp Pulse Resp BP Pulse Ox O2 Del Method O2 Flow Rate 97.5 F 72 19 116/69 99 Nasal Cannula 2 09/03/25 16:00 09/03/25 16:00 09/03/25 16:00 09/03/25 16:00 09/03/25 16:00 09/03/25 16:00 09/03/25 16:00 Narrative Exam Patient condition is unchanged. Cardio pulmonary exam is unchanged. The dressings on abdominal wall is intact. Rectal packing was removed. Results Results: Laboratory Laboratory Narrative: The bilirubin is mildly elevated etiology is unclear. His CT scan did not reveal any metaststic disease. Assessment & Plan Diagnosis (1) Carcinoma of rectum: Status: Acute (2) Complete obstruction of colon: Status: Acute (3) Hypertension: Status: Acute Plan Take patient back to OR to mature the loop colostomy. Informed consent was obtained. PROCEDURES: Procedure Date 09/02/25 Procedures Examination under anesthesia and partial resection of rectal tumor Laparoscopic assisted Transverse loop colostomy on 09/02/2025 (3) Hypertension Qualifiers: Hypertension type: primary hypertension Qualified Code(s): I10 - Essential (primary) hypertension
[2025-09-03] MEDS: ATORVASTATIN CALCIUM 20 MG TABLET 40 MG PO (20:45)
--- NOTE | 2025-09-03 21:26 | PC.NURSE ---
dr luong at bedside at 2015 to assess patient. removed rectal packing and educated patient on surgery for tomorrow. also gave update to pts friend marvin on plan of care.
[2025-09-04] VITALS (17 sets, daily range): BP systolic 113–131; BP diastolic 58–73; PULSE 62–91; RESP 12–20; TEMP 35.9–36.9; O2SAT 90–97; BMI 27.9
[2025-09-04] MEDS: HYDROmorphone INJ 2 MG/ML VIAL 1 MG IVP ×3 (00:58→20:20)
[2025-09-04] MEDS: RINGERS LACTATED 1000 ML 1,000 ML 125 ML IV ×3 (04:00→18:13)
--- NOTE | 2025-09-04 08:40 | ESPR_ITS ---
<Statement entered by Nam Rondon MD - 09/04/25 15:12> Patient was seen and examined at bedside. I agree on the assessment and plan on this note as documented by resident PGY1. 64-year-old male with past medical history as below admitted by general surgery for colostomy after findings of suspected rectal cancer on colonoscopy for further intervention, hospitalist service was consulted for management of blood pressure, patient's blood pressure within normal limits, hydrochlorothiazide home medication resumed by general surgeon Dr. Calle, blood pressure currently soft, continue to monitor blood pressure. Case discussed with attending Dr. Gabe Mack MD PGY-2 Documentation for date of: 09/04/25 Subjective Subjective Interval history: Patient's blood pressure 113/62 today. Currently on hydrochlorothiazide 25 mg p.o. every morning. Patient primarily managed by General Surgery under Carl Alcazar. On 09/02/2025, patient received transanal resection of rectal tumor and laparoscopic colostomy. Colostomy bag has been placed. Per general surgery, Dr. Calle, patient will be discharged within next 2 to 3 days. No Overnight events. Labs reviewed and patient examined at the bedside. Denies chest pain, palpation, SOB, N/V, fevers or chills. Exam Vital Signs Temp Pulse Resp BP Pulse Ox O2 Del Method O2 Flow Rate 98 F 91 16 113/58 L 92 L Nasal Cannula 1 09/04/25 04:00 09/04/25 07:15 09/04/25 07:15 09/04/25 04:00 09/04/25 07:15 09/04/25 04:00 09/04/25 07:15 Narrative Exam General: Frail, elderly, AAO x3 Eye: Normal conjunctiva, no scleral icterus HENT: Normocephalic, atraumatic, hearing intact to conversation at normal volume, moist oral mucosa Neck: Supple, non-tender, no JVD, no lymphadenopathy Lungs: Non-labored respirations, symmetric chest rise, Clear to auscultate bilaterally, No wheezing, rhonchi, crackles Heart: Peripheral pulses intact bilaterally, Regular Rate and Rhythm. Abdomen: Soft, non-tender, non-distended, no palpable masses, Colostomy bag in place. Surrounding skin clear with no erythema, drainage, or signs of infection. Musculoskeletal: Normal range of motion and strength, No cyanosis or edema, No visible joint swelling Skin: Skin is warm, dry, no rashes or lesions. Psychiatric: Cooperative, appropriate mood and affect, Awake and alert, not agitated Neuro: Cranial nerves II-XII grossly intact. Strength 5/5 throughout. Sensations intact to light touch. Objective Labs 09/03/25 07:42 09/03/25 07:42 Labs: Laboratory Results - last 24 hr 09/03/25 07:42 WBC 11.1 H RBC 4.44 L Hgb 10.9 L Hct 34.1 L MCV 77 L MCH 24.5 L MCHC 32.0 RDW Std Deviation 38.8 Plt Count 322 Neut % (Auto) 88 H Lymph % (Auto) 5 L [place] % (Auto) 7 Eos % (Auto) 0 Baso % (Auto) 0 Neut # (Auto) 9.8 H Lymph # (Auto) 0.5 L [place] # (Auto) 0.7 Eos # (Auto) 0.0 Baso # (Auto) 0.0 Immature Gran # (Auto) 0.04 H Absolute Nucleated RBC 0.00 Immature Gran % 0 Nucleated RBC % 0 Sodium 137 Potassium 4.5 D Chloride 105 Carbon Dioxide 24.3 Anion Gap 8 BUN 15 Creatinine 0.8 Estim Creat Clear Calc 101.2 eGFR > 60 BUN/Creatinine Ratio 19 Glucose 127 H Calculated Osmolality 276 Calcium 8.5 Corrected Calcium 8.9 Total Bilirubin 1.5 H AST 16 ALT 10 Alkaline Phosphatase 96 Total Protein 5.4 L Albumin 3.5 Globulin 1.9 L Albumin/Globulin Ratio 1.8 Quality Measures Quality Measures VTE prophylaxis Assessment & Plan Assessment Current Active Medications: Generic Name Dose Route Start Last Admin Trade Name Freq PRN Reason Stop Dose Admin Acetaminophen 650 mg 08/31/25 20:30 Acetaminophen 325 Mg Tablet PO 09/30/25 20:29 Q4HR PRN PAIN OR FEVER > 100.4 Atorvastatin Calcium 40 mg 08/31/25 21:00 09/03/25 20:45 Atorvastatin Calcium 20 Mg Tablet PO 09/30/25 20:59 40 mg HS SHAHNAZ Administration Diphenhydramine HCl 25 mg 08/31/25 09:04 Diphenhydramine Inj 50 Mg/Ml Vial IVP [id number] PRN MODERATE SEDATION Hydrochlorothiazide 25 mg 09/03/25 09:00 09/03/25 08:11 Hydrochlorothiazide 12.5 Mg Capsule PO 10/03/25 08:59 25 mg QAM SHAHNAZ Administration Hydromorphone HCl 1 mg 08/31/25 20:34 09/04/25 00:58 Hydromorphone Inj 2 Mg/Ml Vial IVP 09/05/25 10:58 1 mg Q4HR PRN Administration PAIN SCALE 4-10(Mod-Sev Lactated Ringer's 1,000 mls @ 125 mls/hr 08/31/25 11:00 09/04/25 04:00 Lactated Ringers IV 09/30/25 10:59 125 mls/hr .Q8H SHAHNAZ Administration Plan Abdullahi Martinez, 64y/o M with PMH of unilateral inguinal hernia, essential HTN, HLD, was admitted at the request of General Surgery for hypertension managment during transanal rectal tumor resection and laproscopic colostomy. # Hypertension - 09/04: BP 113/62. on hydrochlorothiazide 25mg daily. Discontinued Lisinopril - Not an indication to resume lisinopril at this time - Pain regimen which can contribute to hypertension managed per primary team - Will continue to follow #Colorectal cancer - Found on last screening colonoscopy - Dr. Calle reported confirmation of histologic diagnosis of adenocarcinoma rectum invading perianal skin. Patient is scheduled for examination of the rectal tumor under anaesthesia and possible debulking to open rectal passage for stool and laparoscopic loop colostomy possible open - Status post resection of obstructing rectal adenocarcinoma and transverse loop colostomy 09/[address] Calle - Manage per primary team #Hypokalemia-Resolved DVT prophylaxis: SCD GI prophylaxis: None Diet: NPO, surgery today Lines: PIV Code status: Full code Assessment and plan discussed with my attending physician Dr. Garcia and Dr. Rondon (PGY-2) Dr. Braxton (PGY-1) - Internal medicine resident Attending Provider Attestation/Addendum I have discussed and was present for the essential components of the history, physical examination, diagnosis, and treatment plan with the resident. I agree with the patient's care as documented by the resident and amended herein by me. Alfredo Garcia DO. Although this document has been carefully reviewed, there may still be some phonetic and other typographical errors. These errors are purely grammatical due to imperfections in the software program and should not be construed in any way to compromise the substance of the patient's medical care during this visit. Patient seen and evaluated this AM. Patient now postop day 2 from laparoscopic assisted transverse loop colostomy and postop day 0 from revision of the colostomy and maturing of colostomy. Medicine team consulted for hypertension, patient has remained normotensive today, can restart BP meds incrementally, patient has been within normal limits, medicine will sign off the case today however can certainly assist if needed. Thank you Dr. Calle for the opportunity to participate in the care and management of this patient
--- NOTE | 2025-09-04 09:26 | PD.SURPROG ---
Documentation for date of: 09/04/25 Subjective Subjective Brief History: This 64-year-old white male was brought to the hospital for screening colonoscopy and also evaluation of the rectal bleeding. He was found to have a completely obstructing rectal cancer was with a very small channel measuring about 5 mm the bowel prep did not work on him and he was evaluated endoscopically today and some biopsies were taken. He is being admitted to the hospital he is going to need to have diverting colostomy and he will require neoadjuvant chemoradiation therapy prior to other management can be instituted. He will definitely need permanent colostomy at this time. The biopsies were taken and we will confirm the diagnosis of the cancer. He will be evaluated for his general medical condition and he will be scheduled for colostomy that may be done laparoscopically loop colostomy. He will definitely require neoadjuvant chemotherapy and radiation therapy prior to considering any surgical resection. Oncology and radiation oncology consultations have been requested. September 01, 2025 Progress note. 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 Patient is scheduled for examination of the rectal tumor under anaesthesia and possible debulking to open rectal passage for stool and laparoscopic loop colostomy possible open. I have discussed the colostomy and after care with the patient in different ways that the patient may understand and informed consent is obtained. He lives alone and he may need help to learn to manage the colostomy after discharge I will request certified social workers in health care for assistance. His potenssium is 3.3 and I will replace that tonight. There are no new complaints. Patient is evaluated by hospitalist service for general medical mangement. September 02 2025. Progress note. This patient is scheduled for examination under anesthesia and transanal resection of rectal tumor and laparoscopic colostomy. Informed consent was obtained. September 03 2025 Progress note. The packing from the anal canal was removed there is minimal bleeding. The dressing on the loop colostomy is intact. Colostomy will be matured tomorrow. Informed consent was obtained. September 04, 2025 preoperative progress note: Patient is evaluated this morning before surgery and the procedure discussed with the patient in detail informed consent is again obtained. The colostomy will be matured. Patient has no questions he understands what we are going to do and there are no new complaints or issues. Exam Vital Signs Temp Pulse Resp BP Pulse Ox O2 Del Method O2 Flow Rate 97.5 F 67 18 131/65 H 92 L Nasal Cannula 2 09/04/25 08:00 09/04/25 08:00 09/04/25 08:00 09/04/25 08:00 09/04/25 08:00 09/04/25 08:00 09/04/25 08:00 Narrative Exam Cardiopulmonary examination is normal abdomen is soft and nontender there is incisional tenderness as well as colostomy is present in the right upper quadrant. There is no rectal bleeding. Extremities are unremarkable. Assessment & Plan Diagnosis (1) Carcinoma of rectum: Status: Acute (2) Complete obstruction of colon: Status: Acute (3) Hypertension: Status: Acute Plan Ralph D colostomy today we will be able to feed the patient postoperatively and we will institute discharge planning in the next 2 to 3 days. PROCEDURES: Procedures Examination under anesthesia and partial resection of rectal tumor Laparoscopic assisted Transverse loop colostomy on 09/02/2025 (3) Hypertension Qualifiers: Hypertension type: primary hypertension Qualified Code(s): I10 - Essential (primary) hypertension
--- NOTE | 2025-09-04 10:20 | SUR.PHASEI ---
1020: Pt. AAOx4, vitals stable, breathing unlabored, no complaint of pain or nausea, colostomy bag in place, stoma pink and moist, report received from MD Montez and Rita PARKER.
--- NOTE | 2025-09-04 10:21 | PD.SUROPNT ---
Date of Procedure 09/04/25 Pre Op Diagnosis Obstructing adenocarcinoma of the rectum Post Op Diagnosis Same. Procedure Revision of colostomy and maturing of colostomy on 09/04/2025 Examination under anesthesia and partial resection of rectal tumor Laparoscopic assisted Transverse loop colostomy on 09/02/2025 Findings This patient has an obstructive headache and no carcinoma of the colon and he is brought here for management he was found to have unresectable rectal cancer he is going to need neoadjuvant chemotherapy and radiation therapy to see if it is amenable to surgical resection at the later time. He has a loop colostomy that requires revision and maturing this is located in the right upper quadrant Procedure Description The patient is interviewed in the preoperative area and examined. There are no changes in his preoperative condition. The risk benefits and alternatives of the proposed procedure is discussed with the patient and informed consent is obtained. Patient is then taken to the operating room and positioned in the supine position. General anesthesia is administered by the anesthesiologist. A timeout procedure is carried out. The abdomen is prepped and draped in usual manner. Ioban is placed on the previous laparotomy incision before opening the colostomy. The colostomy is examined and I decided to make a incision between the 2 ends of the colostomy perpendicular to the long axis of the bowel. After that the bowel was opened and decompressed and then I matured the proximal end of the colostomy by everting that circumferentially and then the rest of that was also done approximating the edge of the bowel with the dermis. Then I removed the plastic bridge and then completed mucosa to dermis sutures at the corners. After this both the ends of the colostomy are admitting about 1 finger. It is a patent. Then I applied the adhesive on the skin measured the colostomy appliance and placed the colostomy appliance on the patient. The Ioban was removed. Patient taught the procedure very well. Anesthesia GETA Drains None. Implants Implants comments: None. Pathology / specimen None Estimated Blood Loss 2 Condition Stable Disposition PACU Surgeon Carl Calle MD Surgical Staff Operation Date: 09/04/25 09:15 Case Staff Anesthesiologist: Chon Montez RNenterprise resource planner: Heidi Baca RN network support manager Andressa electro mechanical technologist (3) Hypertension Qualifiers: Hypertension type: primary hypertension Qualified Code(s): I10 - Essential (primary) hypertension
--- NOTE | 2025-09-04 10:52 | SUR.PHASEI ---
Pt. AAOx4, vitals stable, breathing unlabored, no complaint of pain or nausea, colostomy bag in place, stoma pink and moist, pt. refused fluids to drink, gave report to [facility] prior to transfer to room 357. Pt. stated he didn't want me to update anyone about surgery being completed or of transfer back to his room.
[2025-09-04] MEDS: ACETAMINOPHEN IVPB 1,000 MG/100 ML VIAL 250 MG IV ×3 (11:13→23:46)
[2025-09-04] MEDS: ATORVASTATIN CALCIUM 20 MG TABLET 40 MG PO (20:20)
[2025-09-05] VITALS (8 sets, daily range): BP systolic 114–136; BP diastolic 63–84; PULSE 65–80; RESP 16–97; TEMP 36.1–37.1; O2SAT 92–95
[2025-09-05] MEDS: RINGERS LACTATED 1000 ML 1,000 ML 125 ML IV ×3 (02:18→19:43)
[2025-09-05] MEDS: ACETAMINOPHEN IVPB 1,000 MG/100 ML VIAL 250 MG IV (05:19)
[2025-09-05] MEDS: HYDROmorphone INJ 2 MG/ML VIAL 1 MG IVP ×4 (07:52→19:43)
--- NOTE | 2025-09-05 19:13 | ESPR_ITS ---
Documentation for date of: 09/05/25 Subjective Subjective Brief History: This 64-year-old white male was brought to the hospital for screening colonoscopy and also evaluation of the rectal bleeding. He was found to have a completely obstructing rectal cancer was with a very small channel measuring about 5 mm the bowel prep did not work on him and he was evaluated endoscopically today and some biopsies were taken. He is being admitted to the hospital he is going to need to have diverting colostomy and he will require neoadjuvant chemoradiation therapy prior to other management can be instituted. He will definitely need permanent colostomy at this time. The biopsies were taken and we will confirm the diagnosis of the cancer. He will be evaluated for his general medical condition and he will be scheduled for colostomy that may be done laparoscopically loop colostomy. He will definitely require neoadjuvant chemotherapy and radiation therapy prior to considering any surgical resection. Oncology and radiation oncology consultations have been requested. September 01, 2025 Progress note. 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 Patient is scheduled for examination of the rectal tumor under anaesthesia and possible debulking to open rectal passage for stool and laparoscopic loop colostomy possible open. I have discussed the colostomy and after care with the patient in different ways that t he patient may understand and informed consent is obtained. He lives alone and he may need help to learn to manage the colostomy after discharge I will request social welfare administrator for assistance. His potenssium is 3.3 and I will replace that tonight. There are no new complaints. Patient is evaluated by hospitalist service for general medical mangement. September 02 2025. Progress note. This patient is scheduled for examination under anesthesia and transanal resection of rectal tumor and laparoscopic colostomy. Informed consent was obtained. September 03 2025 Progress note. The packing from the anal canal was removed there is minimal bleeding. The dressing on the loop colostomy is intact. Colostomy will be matured tomorrow. Informed consent was obtained. September 04, 2025 preoperative progress note: Patient is evaluated this morning before surgery and the procedure discussed with the patient in detail informed consent is again obtained. The colostomy will be matured. Patient has no questions he understands what we are going to do and there are no new complaints or issues. September 05, 2025 Progress note: Post op day 1 after revision of colostomy. Patient has minimal pain in abdomen. The colostomy is moving. The patient is again informed about getting Neoadjuvant chemoradiotherapy. He is not ambulating. He feels that he will be able to ambulate with assistance. He is tolerating regular diet well. Exam Vital Signs Temp Pulse Resp BP Pulse Ox O2 Del Method O2 Flow Rate 98.8 F 80 19 114/74 95 Room Air 4 09/05/25 16:00 09/05/25 16:00 09/05/25 16:00 09/05/25 16:00 09/05/25 16:00 09/05/25 16:00 09/04/25 19:13 Narrative Exam Cardio pulmonary exam is normal. Abdomen is soft and nondistended. Colostomy is functioning and has semisolid stool in it. The abdominal incisions have no evidence of infection or hyperemia and no drainage. Stitches are in place. Extremities are wnl. There is small amount of bleeding frm rectum. Assessment & Plan Diagnosis (1) Carcinoma of rectum: Status: Acute (2) Complete obstruction of colon: Status: Acute (3) Hypertension: Status: Acute (4) Status post colostomy: Status: Acute Plan Ambulate patient. Colostomy teaching home health nurse for colostomy care and colostomy supplies. Needs appointments in cancer treatment center. Discharge planning in progress. Will discharge patient when adequate follow up a rrengements are made. PROCEDURES: Procedure Date 09/04/25 Procedures Revision of colostomy and maturing of colostomy on 09/04/2025 Examination under anesthesia and partial resection of rectal tumor Laparoscopic assisted Transverse loop colostomy on 09/02/2025 (3) Hypertension Qualifiers: Hypertension type: primary hypertension Qualified Code(s): I10 - Essential (primary) hypertension
[2025-09-05] MEDS: ATORVASTATIN CALCIUM 20 MG TABLET 40 MG PO (20:36)
[2025-09-06] VITALS (9 sets, daily range): BP systolic 125–152; BP diastolic 69–87; PULSE 58–74; RESP 16–94; TEMP 36.2–37.2; O2SAT 91–95
[2025-09-06] MEDS: RINGERS LACTATED 1000 ML 1,000 ML 125 ML IV (02:37)
[2025-09-06] MEDS: HYDROmorphone INJ 2 MG/ML VIAL 1 MG IVP ×3 (03:13→17:51)
--- NOTE | 2025-09-06 09:43 | PC.NURSE ---
Started post op wound and colostomy care education for pt, pt participtated in measuring stoma and changing colostomy wafer and bag
--- NOTE | 2025-09-06 10:55 | PC.PT ---
PT eval only. Patient is xI with bed mobility, transfers, and ambulation with no AD. Patient is safe to ambulate to the bathroom and in the halls with no AD or staff. RN made aware.
--- NOTE | 2025-09-06 18:00 | ESPR_ITS ---
Documentation for date of: 09/06/25 Subjective Subjective Brief History: This 64-year-old white male was brought to the hospital for screening colonoscopy and also evaluation of the rectal bleeding. He was found to have a completely obstructing rectal cancer was with a very small channel measuring about 5 mm the bowel prep did not work on him and he was evaluated endoscopically today and some biopsies were taken. He is being admitted to the hospital he is going to need to have diverting colostomy and he will require neoadjuvant chemoradiation therapy prior to other management can be instituted. He will definitely need permanent colostomy at this time. The biopsies were taken and we will confirm the diagnosis of the cancer. He will be evaluated for his general medical condition and he will be scheduled for colostomy that may be done laparoscopically loop colostomy. He will definitely require neoadjuvant chemotherapy and radiation therapy prior to considering any surgical resection. Oncology and radiation oncology consultations have been requested. September 01, 2025 Progress note. 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 Patient is scheduled for examination of the rectal tumor under anaesthesia and possible debulking to open rectal passage for stool and laparoscopic loop colostomy possible open. I have discussed the colostomy and after care with the patient in different ways that t he patient may understand and informed consent is obtained. He lives alone and he may need help to learn to manage the colostomy after discharge I will request social service liaison for assistance. His potenssium is 3.3 and I will replace that tonight. There are no new complaints. Patient is evaluated by hospitalist service for general medical mangement. September 02 2025. Progress note. This patient is scheduled for examination under anesthesia and transanal resection of rectal tumor and laparoscopic colostomy. Informed consent was obtained. September 03 2025 Progress note. The packing from the anal canal was removed there is minimal bleeding. The dressing on the loop colostomy is intact. Colostomy will be matured tomorrow. Informed consent was obtained. September 04, 2025 preoperative progress note: Patient is evaluated this morning before surgery and the procedure discussed with the patient in detail informed consent is again obtained. The colostomy will be matured. Patient has no questions he understands what we are going to do and there are no new complaints or issues. September 05, 2025 Progress note: Post op day 1 after revision of colostomy. Patient has minimal pain in abdomen. The colostomy is moving. The patient is again informed about getting Neoadjuvant chemoradiotherapy. He is not ambulating. He feels that he will be able to ambulate with assistance. He is tolerating regular diet well. August Progress note: Patient is tolerating regular diet and the colostomy is functioning well. He is walking in the hallway . He had a shower today. He is scheduled to be discharged tomorrow. There are no new complaints. Exam Vital Signs Temp Pulse Resp BP Pulse Ox O2 Del Method O2 Flow Rate 97.2 F 72 18 144/79 H 95 Room Air 4 09/06/25 16:00 09/06/25 16:00 09/06/25 16:00 09/06/25 16:00 09/06/25 16:00 09/06/25 16:09/04/25 19:13 Narrative Exam Abdomen is soft and nondistended. Colostomy is in place. There is no wound infection. Cardio pulmoary status is normal. Extremities nl. Assessment & Plan Diagnosis (1) Complete obstruction of colon: Status: Acute (2) Status post colostomy: Status: Acute (3) Hypertension: Status: Acute (4) Carcinoma of rectum: Status: Acute Plan Discharge planning tomorrow. Follow up in office in 1 week. PROCEDURES: Procedure Date 09/04/25 Procedures Revision of colostomy and maturing of colostomy on 09/04/2025 Examination under anesthesia and partial resection of rectal tumor Laparoscopic assisted Transverse loop colostomy on 09/02/2025 (3) Hypertension Qualifiers: Hypertension type: primary hypertension Qualified Code(s): I10 - Essential (primary) hypertension
[2025-09-06] MEDS: ATORVASTATIN CALCIUM 20 MG TABLET 40 MG PO (20:31)
[2025-09-07] VITALS (9 sets, daily range): BP systolic 116–149; BP diastolic 64–83; PULSE 62–92; RESP 17–93; TEMP 36.7–37.4; O2SAT 92–96
--- NOTE | 2025-09-07 13:02 | PC.NURSE ---
Discharge pending social services coordinator visit, patient states he lives in a van.
--- NOTE | 2025-09-07 15:11 | PC.SS ---
ART EDITOR informed by bedside nurse that patient is scheduled to be discharged today. Patient resides in a van. Patient in possession of colostomy bag which was placed during current admission. Nursing concerned over maintenance and monitoring of colostomy bag. ART EDITOR met with patient at bedside, confirmed patient resides in van. ART EDITOR informed patient of possessing residence to discharge to. Patient stated not possessing any relatives for placement. Stated friend, Rosy Moscoso, might not be an option either. ART EDITOR encouraged patient to reach out to friend. Home health will need to be established to follow patient with colonoscopy bag.
[2025-09-07] MEDS: ATORVASTATIN CALCIUM 20 MG TABLET 40 MG PO (20:09)
[2025-09-08] VITALS: BP 119/79; PULSE 84; RESP 18; TEMP 36.9; O2SAT 93
[2025-09-08 04:00] VITALS: BP 133/74; PULSE 75; RESP 17; TEMP 36.9; O2SAT 94
[2025-09-08 08:00] VITALS: BP 119/74; PULSE 65; RESP 18; TEMP 36.9; O2SAT 93
--- NOTE | 2025-09-08 09:00 | PC.SS ---
Follow up note: New Colonoscopy. Pt will return to friend's home upon dc.
--- NOTE | 2025-09-08 09:13 | PD.ONCPROG ---
Documentation for date of: 09/08/25 Subjective Subjective Interval history: Patient underwent diverting colostomy 09/02/2025 for obstruction caused by rectal cancer recovering satisfactorily. Final path revealed invasive adenocarcinoma well-differentiated with no loss of expression in for mismatch repair proteins Exam Vital Signs Temp Pulse Resp BP Pulse Ox O2 Del Method O2 Flow Rate 98.5 F 65 18 119/74 93 L Room Air 4 09/08/25 08:00 09/08/25 08:00 09/08/25 08:00 09/08/25 08:00 09/08/25 08:00 09/08/25 04:00 09/07/25 16:00 Narrative Exam Appearing well. Colostomy functioning well. Objective Labs 09/03/25 07:42 09/03/25 07:42 Assessment & Plan A&P Narrative 1. History of lower GI bleeding, anemia noted on CBC obstructive symptoms colonoscopy revealing obstruction rectal area 2. Colostomy performed patient recovering satisfactorily 3 pathology reveals invasive adenocarcinoma well-differentiated with no loss of expression in for mismatch repair proteins 4. Patient told the need to have referral from primary care provider to cancer center for further staging and adjuvant therapy. 5, port for anticipated chemo will be helpful and requested. Time Spent With Patient Time: Total time spent is greater than 50% in coordination of care (as documented) at patient's floor/unit and/or counseling patient: Quality - progress note VTE Deep Vein Thrombosis/Pulmonary Embolism Present on Admission: No
[2025-09-08 09:35] VITALS: BP 119/74; PULSE 65
--- NOTE | 2025-09-08 10:36 | PC.SS ---
SS met with pt and confirmed d/c plan to return home. SS received call from Ceferino Damian, friend (phone# [phone] who explained pt is staying on his property address: [id number] [place] [address]. Ceferino is agreeable for pt to utilizes his address for Home Health Services and supplies.
[2025-09-08 12:00] VITALS: BP 123/72; PULSE 72; RESP 18; TEMP 36.2; O2SAT 92
--- NOTE | 2025-09-10 11:14 | PD.SURDS ---
Planned Discharge Date 09/07/25 DS: Providers Provider Date of admission: 08/31/25 15:40 Primary care physician: Salbador Bar MD Admitting Provider: Carl Calle MD Attending Provider on Admission: Gabe Garcia DO Consults: 08/31/25 11:11 Consult to Adult Hospitalist Urgent Comment: Obstructing rectal cancer Multiple medical problem Consulting Provider: Hiren Beth 08/31/25 16:04 Consult to Physician Urgent Comment: Advanced obstructing cancer of Rectum Consulting Provider: Tin Butler 08/31/25 16:07 Consult to Physician Urgent Comment: Advanced obstructing cancer of Rectum Consulting Provider: Joon Mead 08/31/25 16:42 [facility] Referral - Nutrition Routine Comment: Positive screening for nutrition needs. [facility] Referral - Safety Routine Comment: Positive screening for safety needs. 09/04/25 10:45 Referral Discharge Planning Routine Comment: In 2 to 3 days. 09/05/25 21:38 Referral Physical Therapy Urgent Comment: Physician Instructions: Attending Provider on DC: Carl Calle MD Discharging Provider: Carl Calle MD Diagnosis Discharge Diagnosis (1) Status post colostomy: Status: Acute (2) Complete obstruction of colon: Status: Acute (3) Carcinoma of rectum: Status: Acute Problem List Completed Was Problem List Reviewed/Reconciled?: Yes Hospital Course Brief History: This 64-year-old white male was brought to the hospital for screening colonoscopy and also evaluation of the rectal bleeding. He was found to have a completely obstructing rectal cancer was with a very small channel measuring about 5 mm the bowel prep did not work on him and he was evaluated endoscopically today and some biopsies were taken. He is being admitted to the hospital he is going to need to have diverting colostomy and he will require neoadjuvant chemoradiation therapy prior to other management can be instituted. He will definitely need permanent colostomy at this time. The biopsies were taken and we will confirm the diagnosis of the cancer. He will be evaluated for his general medical condition and he will be scheduled for colostomy that may be done laparoscopically loop colostomy. He will definitely require neoadjuvant chemotherapy and radiation therapy prior to considering any surgical resection. Oncology and radiation oncology consultations have been requested. September 01, 2025 Progress note. 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 Patient is scheduled for examination of the rectal tumor under anaesthesia and possible debulking to open rectal passage for stool and laparoscopic loop colostomy possible open. I have discussed the colostomy and after care with the patient in different ways that the patient may understand and informed consent is obtained. He lives alone and he may need help to learn to manage the colostomy after discharge I will request social science instructor for assistance. His potenssium is 3.3 and I will replace that tonight. There are no new complaints. Patient is evaluated by hospitalist service for general medical mangement. September 02 2025. Progress note. This patient is scheduled for examination under anesthesia and transanal resection of rectal tumor and laparoscopic colostomy. Informed consent was obtained. September 03 2025 Progress note. The packing from the anal canal was removed there is minimal bleeding. The dressing on the loop colostomy is intact. Colostomy will be matured tomorrow. Informed consent was obtained. September 04, 2025 preoperative progress note: Patient is evaluated this morning before surgery and the procedure discussed with the patient in detail informed consent is again obtained. The colostomy will be matured. Patient has no questions he understands what we are going to do and there are no new complaints or issues. September 05, 2025 Progress note: Post op day 1 after revision of colostomy. Patient has minimal pain in abdomen. The colostomy is moving. The patient is again informed about getting Neoadjuvant chemoradiotherapy. He is not ambulating. He feels that he will be able to ambulate with assistance. He is tolerating regular diet well. August Progress note: Patient is tolerating regular diet and the colostomy is functioning well. He is walking in the hallway . He had a shower today. He is scheduled to be discharged tomorrow. There are no new complaints. September 07, 2025 Discharge note: Patient is ambulating. Colostomy is moving. He needs home health referral for management of colostomy and supplies. He will come back to office in 2 weeks. Home health nurse can assess the wound and remove stitches in 10 days. Patient was admitted due to rectal cancer. He underwent examination under anesthesia partial resection of rectal cancer and loop colostomy on the right upper quadrant. He did well and the colostomy was matured and now he is being discharged home. Exam Vital Signs Temp Pulse Resp BP Pulse Ox O2 Del Method O2 Flow Rate 97.2 F 72 18 123/72 92 L Room Air 4 09/08/25 12:00 09/08/25 12:00 09/08/25 12:00 09/08/25 12:00 09/08/25 12:00 09/08/25 04:00 09/07/25 16:00 Narrative Exam Abdomen is soft and nondistended. Colostomy is in place. The colostomy is moving. There is no infection or bleeding. There is no wound infection. Cardio pulmonary status is normal. Extremities nl. Discharge Plan Plan Patient Disposition: Home w/HOME HEALTH Care Plan Goals: Follow up with [employer] to help with ileostomy supplies. Please call to enroll yourself into the [employer] [facility] to help with supplies. Ileostomy Care: Change every 3-5 days or any time wafer appears soiled Have towel at hand Measure out put Peel off the wafer and discard Clean stoma with warm water and mild soap, pat dry Assess skin around stoma for skin breakdown Cut wafer to fit stoma Prepare skin by applying skin barrier and paste Apply wafer by removing backing from wafer and attaching to skin, smooth down to skin and make sure it?s firmly adhere to skin Follow up with primary care provider within a week of discharge. Request referral from primary care provider for cancer treatment center for further staging and therapy. Prescriptions/Referrals Prescriptions/Med Rec: New hydrocodone-acetaminophen 10-325 mg tablet 1 tab PO Q6H MDD 4 PRN (Reason: pain) Qty: 20 0RF Continued hydrochlorothiazide 25 mg tablet 25 mg PO QAM Qty: 30 0RF atorvastatin 40 mg tablet 40 mg PO HS Patient Comments: TAKE 1 TABLET BY MOUTH IN THE EVENING lisinopril 40 mg tablet 40 mg PO QDAY Patient Comments: TAKE 1 TABLET BY MOUTH EVERY DAY Referrals: Salbador Bar MD [Primary Care Provider, Family Practice] Patient/Caregiver Discharge Instructions Other Discharge Activity Instructions:: Colostomy care Follow up in office in 1 week Other Discharge Diet Instructions: Regular diet Education Materials: Ostomy Care: Emptying Your Pouch, Ileostomy: Caring For Your Stoma, Ileostomy: Changing Your Pouch, Ileostomy: Nutritional Management, Preventing Surgical Site Infections Print Language: Ugandan Stand Alone Forms: [employer] Info., Patient Portal Info Letter Discharge Order Discharge Orders: Discharge (Routine); Ordered 09/07/25 Ordered By: Carl Calle PROCEDURES: Procedure Date 09/04/25 Procedures Revision of colostomy and maturing of colostomy on 09/04/2025 Examination under anesthesia and partial resection of rectal tumor Laparoscopic assisted Transverse loop colostomy on 09/02/2025
--- NOTE | 2025-09-10 11:34 | PC.CC ---
Discharge summary sent to [facility] , verified it has been received by them, SOC 09/10/25.
== END 2025-09-08 15:05 | disposition home health service (06) | DRG 231 ==
LOC: S3NX 15:51
PROVIDERS: Anesthesiology; Specialist; Admitting Provider Specialist; PCP Family Medicine; Referring Provider Specialist; Visit Provider Student in an Organized Health Care Education/Training Program
PROC: 0DJD8ZZ Inspection of Lower Intestinal Tract, Via Natural or Artificial Opening Endoscopic (ICD-10-PCS; CPT 45330; principal; 2025-08-31 13:45)
PROC: 0D1N0Z4 Bypass Sigmoid Colon to Cutaneous, Open Approach (ICD-10-PCS; CPT 49320; principal; 2025-09-02 14:30)
PROC: (CPT 44320; principal; 2025-09-04 09:00)
DX: C20 Malignant neoplasm of rectum (principal); I10 Essential (primary) hypertension; F17.210 Nicotine dependence, cigarettes, uncomplicated; K56.601 Complete intestinal obstruction, unspecified as to cause; E87.6 Hypokalemia; E78.5 Hyperlipidemia, unspecified; Z79.899 Other long term (current) drug therapy; Z87.442 Personal history of urinary calculi
CPT/HCPCS: 36415; 74178; 80048; 80053; 80307; 81001; 83036; 85025; 87077; 87086; 87186; 93225; 97161; A4649; J0131; J0694; J1100; J1171; J1200; J2250; J2371; J2405; J2704; J2710; J2765; J3010; J3480; J3490; J7120; Q9967; A9270; J1596; J1805

== ENCOUNTER 2025-10-06 09:35 | Outpatient (RCR) | payer MEDICAID, SELFPAY ==
--- NOTE | 2025-10-06 10:49 | CTCFLWUP_ITS ---
[facility] Ulrich [facility] [address] [place], [place] [address] FOLLOW-UP NOTE Date: 10/06/2025 MR#: [id number] Name: DIEGO MCPHERSON : Dx: C20 malignant neoplasm of rectum Identification. Patient with CA of the rectum, who underwent laparoscopic assisted transverse loop colostomy 09/02/2025 for obstructive symptoms performed by Dr. Calle. Please see consult of 09/01/2025. Imaging studies preop noted marked inflammatory changes around the entire sigmoid colon with no focal liver or splenic lesions with advanced lumbosacral disc disease. Prior colonoscopy reportedly revealed completely obstructing rectal region with a very small channel measuring about 5 mm and the bowel prep which did not work for him. Biopsy 08/31/2025 revealed adenocarcinoma Rectal tumor resected revealed invasive adenocarcinoma well-differentiated with no loss of expression. As I see patient today, he appears comfortable with colostomy functioning well. Caring for colostomy himself with no difficulties. Told patient about doing staging workup including MRI of the pelvis PET scan him being seen by medical oncologist and port placement for any needed chemo. A#1. Invasive adenocarcinoma well-differentiated, rectal tumor status post loop colostomy performed for obstructive symptoms performed by Dr. Calle 09/02/2025. No loss of expression. A#2. PET scan for staging, MRI of pelvis with contrast ordered. A#3. Port placement Dr Calle A#4. Referral Dr Mead Electronically signed by: Tin Butler M.D. 10/06/2025 10:47 AM
== END 2025-10-27 23:59 | disposition home or self-care (01) ==
LOC: SCTC 09:35
PROVIDERS: PCP Internal Medicine; Referring Provider Internal Medicine; Visit Provider Radiology Therapeutic Radiology
DX: C20 Malignant neoplasm of rectum (principal); Z93.3 Colostomy status; Z90.49 Acquired absence of other specified parts of digestive tract
CPT/HCPCS: 99213; G0463